=== PATIENT | female | born 1955 | race Caucasian/White ===

== ENCOUNTER 2022-08-19 03:54 | Day surgery (SDC) | payer OTHER ==
[2022-08-18 13:54] VITALS: BMI 40.6
[2022-08-19 14:05] VITALS: TEMP 98.7
[2022-08-19 14:38] VITALS: BP 122/73; PULSE 78; RESP 21
== END 2022-08-19 14:39 | disposition home or self-care (01) ==
LOC: JASU-ENDO 03:54
PROVIDERS: ATTEND Student in an Organized Health Care Education/Training Program
PROC: 0D5K8ZZ Destruction of Ascending Colon, Via Natural or Artificial Opening Endoscopic (ICD-10-PCS; principal; 2022-08-19 13:30)
DX: D12.2 Benign neoplasm of ascending colon (principal); K57.30 Diverticulosis of large intestine without perforation or abscess without bleeding
CPT/HCPCS: 82962; 88305-TC

== ENCOUNTER 2022-11-24 06:15 | Day surgery (SDC) | payer OTHER ==
[2022-11-14 17:02] VITALS: BMI 39.7
[2022-11-24] MEDS ORDERED: CEFAZOLIN 2 GM in DEXTROSE 5%-WATER - 50 ML IVPB ONE (07:00)
[2022-11-24] MEDS ORDERED: EPINEPHrine/PF 1 MG/1 ML (1:1,000) AMPULE ONE (07:06)
[2022-11-24] MEDS ORDERED: VANCOMYCIN 1,000 MG VIAL (RESTRICTED TO ID ONLY) ONE (07:06)
[2022-11-24 07:09] VITALS: BP 102/69; PULSE 88; RESP 16; TEMP 98.2
[2022-11-24] MEDS ORDERED: ROCURONIUM BROMIDE 50 MG/5 ML SYRINGE ONE (07:19)
[2022-11-24] MEDS ORDERED: MIDAZOLAM HCL 2 MG/2 ML SINGLE DOSE VIAL ONE (07:19)
[2022-11-24] MEDS ORDERED: PROPOFOL 20 ML ONE (07:19)
[2022-11-24] MEDS ORDERED: BUPIVACAINE HCL/PF 0.5% (5 MG/ML) 30 ML VIAL IJ ONE (07:22)
[2022-11-24] MEDS ORDERED: DEXAMETHASONE SOD PHOSPHATE/PF 10 MG/ML SDV ONE (07:22)
[2022-11-24] MEDS ORDERED: TRANEXAMIC ACID 1000 MG/10 ML VIAL IVPUSH ONE (08:00)
[2022-11-24] MEDS ORDERED: oxyCODONE HCL 5 MG TABLET PO PRN ×2 (09:19)
[2022-11-24] MEDS ORDERED: ONDANSETRON 4 MG/2 ML VIAL IVPUSH PRN (09:19)
[2022-11-24] MEDS ORDERED: ACETAMINOPHEN 1000 MG/100 ML BAG IVPB ONE (09:19)
[2022-11-24] MEDS ORDERED: LACTATED RINGERS SOLUTION 1,000 ML IV SCH (09:30)
[2022-11-24] MEDS ORDERED: ACETAMINOPHEN 500 MG TABLET (FP) PO SCH (18:00)
== END 2022-11-24 13:37 | disposition home or self-care (01) ==
LOC: UNDOADMIN 06:15 → FASUSAT 06:15 → FM/S 06:15 → EDSTATUS 07:30 → FASUSAT 13:37 → UNDODISIN 13:37
PROVIDERS: ATTEND Orthopaedic Surgery
PROC: 0RRK0JZ Replacement of Left Shoulder Joint with Synthetic Substitute, Open Approach (ICD-10-PCS; principal; 2022-11-24)
DX: Z53.8 Procedure and treatment not carried out for other reasons (principal); M19.012 Primary osteoarthritis, left shoulder
CPT/HCPCS: 82962

== ENCOUNTER 2022-11-28 07:15 | Inpatient (IN) | payer OTHER ==
[2022-11-27 15:05] VITALS: BMI 39.7
[~2022-11-28 07:15] MED LIST: TRANEXAMIC ACID 1000 MG/10 ML VIAL ONE; VANCOMYCIN 1,000 MG VIAL (RESTRICTED TO ID ONLY) ONE
[2022-11-28] MEDS ORDERED: PROPOFOL 20 ML ONE (09:00)
[2022-11-28] MEDS ORDERED: MIDAZOLAM HCL 2 MG/2 ML SINGLE DOSE VIAL ONE (09:00)
[2022-11-28] MEDS ORDERED: ROCURONIUM BROMIDE 50 MG/5 ML SYRINGE ONE (09:00)
[2022-11-28] MEDS ORDERED: BUPIVACAINE HCL/PF 0.5% (5 MG/ML) 30 ML VIAL IJ ONE (09:02)
[2022-11-28] MEDS ORDERED: BUPIVACAINE LIPOSOME/PF (EXPAREL) 266 MG/20 ML VIAL ONE (09:03)
[2022-11-28] MEDS ORDERED: ePHEDrine SULFATE 50 MG/1 ML AMPULE ONE (09:26)
[2022-11-28] MEDS ORDERED: SUCCINYLCHOLINE CHLORIDE 200 MG/10 ML SYRINGE ONE (09:27)
[2022-11-28] MEDS ORDERED: CEFAZOLIN 2 GM in DEXTROSE 5%-WATER - 50 ML IVPB ONE (09:30)
[2022-11-28] MEDS ORDERED: VANCOMYCIN 1,000 MG VIAL (RESTRICTED TO ID ONLY) ONE (10:03)
[2022-11-28] MEDS ORDERED: TRANEXAMIC ACID 1000 MG/10 ML VIAL IVPUSH ONE (10:30)
[2022-11-28] MEDS ORDERED: GLYCOPYRROLATE 0.2 MG/1 ML VIAL ONE (11:58)
[2022-11-28] MEDS ORDERED: NEOSTIGMINE METHYLSULFATE 0.5 MG/1 ML - 10 ML MDV ONE (11:58)
[2022-11-28] MEDS ORDERED: ACETAMINOPHEN 1000 MG/100 ML BAG IVPB ONE (12:29)
[2022-11-28] MEDS ORDERED: ONDANSETRON 4 MG/2 ML VIAL IVPUSH PRN ×2 (12:29→12:46)
[2022-11-28] MEDS ORDERED: oxyCODONE HCL 5 MG TABLET PO PRN (12:29)
[2022-11-28] MEDS ORDERED: LACTATED RINGERS SOLUTION 1,000 ML IV SCH (12:30)
[2022-11-28] MEDS ORDERED: MAGNESIUM HYDROX 2400MG/30ML ORAL SUSPENSION 30 ML CUP PO PRN (12:46)
[2022-11-28] MEDS ORDERED: MAG HYDROX/AL HYDROX/SIMETH 30 ML UNIT-DOSE CUP PO PRN (12:46)
[2022-11-28] MEDS ORDERED: KETOROLAC TROMETHAMINE 30 MG/1 ML VIAL ONE (13:18)
[2022-11-28] MEDS ORDERED: ACETAMINOPHEN INJECTION 100 ML IVPB ONE (13:19)
[2022-11-28] MEDS: INSULIN SLIDING SCALE (NOVOLOG) 1 VIAL SQ SCH ×2 (16:28→21:57)
[2022-11-28] MEDS: CEFAZOLIN SODIUM 2 GM in DEXTROSE 5%-WATER 100 ML IVPB SCH (18:07)
[2022-11-28] MEDS: KETOROLAC TROMETHAMINE 30 MG/1 ML VIAL IVPUSH SCH (18:36)
[2022-11-28] MEDS: ACETAMINOPHEN 500 MG TABLET (FP) PO SCH (21:58)
[2022-11-28] MEDS: oxyCODONE HCL 10 MG SUSTAINED ACTING TABLET PO SCH (21:58)
[2022-11-28] MEDS: SENNOSIDES/DOCUSATE COMBO (SENNA PLUS) TABLET (UD) PO SCH (21:59)
[2022-11-28] MEDS ORDERED: ATENOLOL 50 MG TABLET (FP) PO SCH (22:00)
[2022-11-28] MEDS ORDERED: ASPIRIN 81 MG CHEWABLE TABLETS PO SCH (22:00)
[2022-11-28] MEDS ORDERED: ENALAPRIL MALEATE 10 MG TABLET PO SCH (22:00)
[2022-11-28] MEDS ORDERED: VANCOMYCIN 1 GM/200 ML PREMIX BAG (RESTRICTED TO ID ONLY) IVPB ONE (23:00)
[2022-11-29] MEDS: CEFAZOLIN SODIUM 2 GM in DEXTROSE 5%-WATER 100 ML IVPB SCH ×2 (01:49→09:37)
[2022-11-29] MEDS: ACETAMINOPHEN 500 MG TABLET (FP) PO SCH ×2 (02:10→09:38)
[2022-11-29] MEDS: KETOROLAC TROMETHAMINE 30 MG/1 ML VIAL IVPUSH SCH (04:50)
[2022-11-29] MEDS: oxyCODONE HCL 5 MG TABLET PO PRN ×2 (04:50→06:22)
[2022-11-29] MEDS: INSULIN SLIDING SCALE (NOVOLOG) 1 VIAL SQ SCH ×2 (06:23→11:29)
[2022-11-29 06:52] VITALS: RESP 16
[2022-11-29 08:55] LABS: HEMATOCRIT 35.9 % (32.4-45.2); HEMOGLOBIN 11.7 G/dL (10.7-15.3); MCH 28.9 pg (25.7-33.7); MCHC 32.6 g/dl (32.0-36.0); MEAN CELL VOLUME 88.9 fl (80-96); MEAN PLT VOLUME 10.3 fl (7.5-11.1); PLATELET COUNT 175.1 10^3/uL (134-434); RBC 4.04 10^6/uL (3.60-5.2); RDW 14.5 % (11.6-15.6); WHITE BLOOD COUNT 12.8 10^3/uL (4.0-10.8)
[2022-11-29 08:59] VITALS: BP 118/65; PULSE 69; TEMP 98
[2022-11-29] MEDS: SENNOSIDES/DOCUSATE COMBO (SENNA PLUS) TABLET (UD) PO SCH (09:37)
[2022-11-29] MEDS: oxyCODONE HCL 10 MG SUSTAINED ACTING TABLET PO SCH (09:39)
[2022-11-29] MEDS ORDERED: ASPIRIN 325 MG TABLET PO SCH (10:00)
[2022-11-29] MEDS ORDERED: MULTIVITAMINS (DAILY MVI) TABLET (FP) PO SCH (10:00)
[2022-11-29] MEDS ORDERED: PANTOPRAZOLE 40 MG TABLET PO SCH (10:00)
[2022-11-29 10:15] LABS: BLOOD UREA NITROGEN 29.4 mg/dl (7-18); CALCIUM 8.5 mg/dl (8.5-10.1); CREATININE 1.2 mg/dl (0.6-1.3); POTASSIUM 4.1 mmol/L (3.5-5.1)
== END 2022-11-29 12:26 | disposition home or self-care (01) | DRG 483 ==
LOC: FM/S 07:15
PROC: 0RRK00Z Replacement of Left Shoulder Joint with Reverse Ball and Socket Synthetic Substitute, Open Approach (ICD-10-PCS; principal; 2022-11-28 10:23)
DX: M19.012 Primary osteoarthritis, left shoulder (principal); E78.5 Hyperlipidemia, unspecified; I10 Essential (primary) hypertension; E11.9 Type 2 diabetes mellitus without complications; K21.9 Gastro-esophageal reflux disease without esophagitis; G47.33 Obstructive sleep apnea (adult) (pediatric); M75.22 Bicipital tendinitis, left shoulder; E66.9 Obesity, unspecified; Z68.39 Body mass index [BMI] 39.0-39.9, adult
CPT/HCPCS: 36415; 73030-TC-LT-FY; 80048; 82962; 85027; 88305-TC; 88311-TC; 94760; 97116-GP; 97162-GP; C1713; C1776